=== PATIENT | female | born 1960 | race Caucasian/White ===

== ENCOUNTER → 2020-09-14 | Outpatient (CLI) | payer MEDICARE, OTHER ==
[~2020-09-14] MED LIST: CYCLOBENZAPRINE10 MG PO; FLONASE 0.05% N16 GM
== END ==
LOC: HEART 5 08:53
DX: R94.31 Abnormal electrocardiogram [ECG] [EKG] (principal)
CPT/HCPCS: 78452; A9502

== ENCOUNTER 2020-10-26 14:15 | Emergency (ER) | payer MEDICARE, OTHER ==
[~2020-10-26 14:15] MED LIST changes: -CYCLOBENZAPRINE10 MG PO
[2020-10-26] MEDS ORDERED: CYCLOBENZAPRINE10 MG PO (18:41)
== END 2020-10-26 18:49 | disposition home or self-care (01) ==
LOC: ER1 14:15
DX: S16.1XXA Strain of muscle, fascia and tendon at neck level, initial encounter (principal); G89.29 Other chronic pain; M50.321 Other cervical disc degeneration at C4-C5 level; Z90.49 Acquired absence of other specified parts of digestive tract; Z88.1 Allergy status to other antibiotic agents; Z79.899 Other long term (current) drug therapy; F17.200 Nicotine dependence, unspecified, uncomplicated; X58.XXXA Exposure to other specified factors, initial encounter
CPT/HCPCS: 72125; 99284